=== PATIENT | male | born 1975 | race African-American/Black ===

== ENCOUNTER 2021-02-18 14:16 | Outpatient (CLI) | payer OTHER, SELFPAY ==
[2021-02-18 15:34] LABS: Basophils Absolute Auto 0.1 K/mm3 (0.0-0.1); Basophils Percent Auto 0.7 % (0.2-1.2); Eosinophils Absolute Auto 0.3 K/mm3 (0-0.3); Hematocrit 41.6 % (42.0-52.0); Immature Granulocyte Absolute 0.02 K/mm3 (0.00-0.031); Immature Granulocyte Percent A 0.3 % (0-0.5); Lymphocytes Absolute Auto 2.35 K/mm3 (0.9-3.2); Lymphocytes Percent Auto 32.6 % (18.3-44.2); Mean Corpuscular HGB Conc 31.3 g/dl (32-36); Mean Corpuscular Hemoglobin 28.1 pg (26-34); Mean Platelet Volume 10.1 fl (7.4-10.4); Monocytes Absolute Auto 0.5 K/mm3 (0.1-0.6); Monocytes Percent Auto 6.3 % (2.6-8.5); Neutrophils Percent Auto 56.1 % (45.5-73.1); Platelet Count Result 278 k/mm3 (150-375); Red Blood Count 4.62 M/mm3 (4.6-6.20); Red Cell Distribution Width 12.2 % (11.5-14.5); White Blood Count 7.2 K/mm3 (4.5-10.0)
[2021-02-18 17:27] LABS: Alanine Aminotransferase 28 U/L (4-50); Albumin Level 4.1 g/dL (3.5-5.1); Alkaline Phosphatase 57 U/L (38-126); Anion Gap 8 mmol/L (8-16); Aspartate Amino Transferase 28 U/L (17-59); Bilirubin,Total 0.6 mg/dL (0.2-1.3); Blood Urea Nitrogen 9 mg/dL (9-20); Calcium 9.5 mg/dL (8.4-10.2); Carbon Dioxide 26 mmol/L (22-30); Chloride 106 mmol/L (98-107); Cholesterol 192 mg/dL (0-200); Estimated Glomerular Filt Rate > 60; Glucose 78 mg/dL (75-110); HDL Direct 43 mg/dL; Potassium 4.3 mmol/L (3.4-5.0); Sodium 140 mmol/L (137-145); Triglycerides 87 mg/dL (<150)
[2021-02-18 17:38] LABS: LDL Cholesterol Direct 106 mg/dL
[2021-02-18 17:43] LABS: Vitamin D 25 Hydroxy 23.8 ng/mL
== END 2021-02-18 14:17 | disposition home or self-care (01) ==
LOC: ANHLAB 14:19
PROVIDERS: PCP Internal Medicine; Visit Provider Internal Medicine
DX: Z12.5 Encounter for screening for malignant neoplasm of prostate (principal); E03.9 Hypothyroidism, unspecified; E55.9 Vitamin D deficiency, unspecified; E78.00 Pure hypercholesterolemia, unspecified; E78.2 Mixed hyperlipidemia; E78.5 Hyperlipidemia, unspecified; I10 Essential (primary) hypertension
CPT/HCPCS: 36415; 80053; 80061; 82306; 84153; 84443; 85025; G0103

== ENCOUNTER 2022-01-19 10:53 | Outpatient (CLI) | payer OTHER, SELFPAY ==
[2022-01-19 13:01] LABS: Hematocrit 42.7 % (42.0-52.0); Hemoglobin 12.7 g/dL (14.0-18.0); Mean Corpuscular HGB Conc 29.7 g/dl (32-36); Mean Corpuscular Hemoglobin 27.5 pg (26-34); Mean Corpuscular Volume 92.6 fl (80-100); Mean Platelet Volume 10.4 fl (7.4-10.4); Platelet Count Result 313 k/mm3 (150-375); Red Blood Count 4.61 M/mm3 (4.6-6.20); Red Cell Distribution Width 12.7 % (11.5-14.5); White Blood Count 5.8 K/mm3 (4.5-10.0)
[2022-01-19 13:12] LABS: Alanine Aminotransferase 35 U/L (6-50); Alkaline Phosphatase 60 U/L (38-126); Anion Gap 6 mmol/L (8-16); Aspartate Amino Transferase 30 U/L (17-59); Bilirubin,Total 0.5 mg/dL (0.2-1.3); Blood Urea Nitrogen 9 mg/dL (9-20); Calcium 8.8 mg/dL (8.4-10.2); Carbon Dioxide 28 mmol/L (22-30); Chloride 103 mmol/L (98-107); Estimated Glomerular Filt Rate > 60; Glucose 92 mg/dL (65-110); Sodium 137 mmol/L (137-145)
[2022-01-19 13:32] LABS: Vitamin D 25 Hydroxy 34.5 ng/mL
== END 2022-01-19 10:54 | disposition home or self-care (01) ==
LOC: ANHWCLAB 11:00
PROVIDERS: PCP Internal Medicine; Visit Provider Internal Medicine
DX: E03.9 Hypothyroidism, unspecified (principal); E55.9 Vitamin D deficiency, unspecified; Z63.0 Problems in relationship with spouse or partner
CPT/HCPCS: 36415; 80053; 82306; 85027

== ENCOUNTER 2022-02-08 11:28 | Outpatient (CLI) | payer OTHER, SELFPAY ==
--- NOTE | ~2022-02-08 | XR_ITS ---
EXAMINATION: XR femur RT min 2V, XR knee RT 2V DATE: 02/08/2022 11:55 INDICATION: Acute traumatic fracture of the right femur. TECHNIQUE: 1. AP and lateral views of the right femur obtained on overlapping proximal and distal images. 2. AP and lateral views of the right knee were obtained.. COMPARISON: None. FINDINGS: Oblique proximal diaphyseal fracture of the right femur which is fixed with an antegrade intramedulla ry angelica with dynamic femoral neck compression screw and to distal metaphyseal interlocking screws. The re has been a fracture of the more proximal distal metaphyseal screw with approximately 9 mm backing out of the head fragment of the screw. There is prominent callus formation surrounding the fracture c onsistent with healing. There is however persistent lucent band projecting along the fracture plane a s well as the callus, indeterminate whether there is solid osseous bridging. Normal alignment and pardeep nt spaces at the right hip and knee. No right knee joint effusion. IMPRESSION: 1. Internally fixed proximal diaphyseal fracture of the right femur with prominent callus formation b ut residual lucency along the fracture plane across the talus, indeterminate for solid bridging. 2. Fracture of the distal interlocking screw at the distal right femoral metaphysis with 5 mm backing out of the head fragment. Reviewed, dictated and finalized at location B. IMPRESSION: 1. Internally fixed proximal diaphyseal fracture of the right femur with promin ent callus formation but residual lucency along the fracture plane across the t alus, indeterminate for solid bridging. 2. Fracture of the distal interlocking screw at the distal right femoral metaph ysis with 5 mm backing out of the head fragment.
--- NOTE | ~2022-02-08 | XR_ITS ---
EXAM: XR knee LT 2V DATE: 02/08/2022 11:56 HISTORY: M25.569 - Pain in unspecified knee, stepped wrong . COMPARISON: None available. FINDINGS: Normal mineralization. No fracture or dislocation. No lytic or blastic lesion. Mild medial joint space narrowing. Mild tricompartmental osteophytosis. No erosion or periosteal change. Possibl e small left knee joint effusion and anterior soft tissue swelling. IMPRESSION: Mild 3 compartment osteoarthritic change. No acute osseous finding in the left knee. Reviewed, dictated and finalized at location K.
== END 2022-02-08 11:29 | disposition home or self-care (01) ==
LOC: ANHIMG 11:30
PROVIDERS: PCP Internal Medicine; Visit Provider Internal Medicine
DX: M17.12 Unilateral primary osteoarthritis, left knee (principal); S72.91XA Unspecified fracture of right femur, initial encounter for closed fracture; M25.561 Pain in right knee
CPT/HCPCS: 73552; 73560

== ENCOUNTER 2022-03-27 00:18 | Day surgery (SDC) | payer OTHER, SELFPAY ==
[2022-03-17 10:30] VITALS: BMI 52.9
[2022-03-27 09:42] VITALS: BP 140/85; PULSE 87; RESP 20; TEMP 36.4; O2SAT 97
[2022-03-27] MEDS: LACTATED RINGERS 1,000 ML 150 ML IV CONT (09:51)
--- NOTE | 2022-03-27 10:18 | WPDANESEPPF ---
Anes - Initial Pre Proc Eval Procedure: Operation Date: 03/27/22 10:45 Proposed Procedures p Screening Colonoscopy - Ramesh Gibbs MD Date/Time: 03/27/22 10:18 Surgeon: Ramesh Gibbs MD Pre Op Diagnosis: neoplasm screening Patient Data Age: 47 Gender: M Height: 1.83 m Weight: 177 kg Last Vital Signs Temp 97.5 F L 03/27/22 09:42 Pulse 87 03/27/22 09:42 Resp 20 03/27/22 09:42 BP 140/85 03/27/22 09:42 Pulse Ox 97 03/27/22 09:42 O2 Del Method Room Air 03/27/22 09:42 Allergies Allergy/AdvReac Type Severity Reaction Status Date / Time No Known Allergies Allergy Verified 03/27/22 09:41 Home Medications Medication Instructions Recorded Confirmed Type hydrochlorothiazide 25 mg tablet See Rx Instructions .Route 01/23/22 03/17/22 Rx .COMPLEX #90 tabs levothyroxine 50 mcg tablet 50 mcg PO DAILY #90 tabs 01/23/22 03/17/22 Rx (Synthroid) losartan 50 mg-hydrochlorothiazide See Rx Instructions .Route 01/23/22 03/17/22 Rx 12.5 mg tablet .COMPLEX #90 tabs rosuvastatin 5 mg tablet (Crestor) 5 mg PO DAILY #90 tabs 01/23/22 03/17/22 Rx Patient hx anesthesia problems: none Family hx anesthesia problems: none Results Review: All pre-operative results and documents have been reviewed as part of the pre-operative evaluation. [facility] Past Medical History Medical History (Updated 03/27/22 @ 10:19 by Ramesh Gibbs MD) Colon cancer screening Family History Family History (Updated 04/24/17 @ 14:41 by DOCTOR UNKNOWN) Grandparent Diabetes mellitus Hypertension Family history of cardiovascular disease Father Family history of alcoholism Social History Social History (Updated 01/23/22 @ 10:45 by Rin Martinez [facility]) Smoking packs per day: 0.5 Smoking cigarettes per day: 10.0 Years smoked: 6 Smoking pack-years: 3.00 Smoking status: Former smoker Tobacco type: cigarettes Alcohol intake: current Alcohol use details: occasional social use Substance use: never Substance use type: does not use Living arrangements: with family Spiritual care concerns: No Anes - Eval Final PreProcedure Day of Procedure 03/27/22 10:18 Patient weight: super morbidly obese Heart: regular rate and rhythm Lungs: clear to auscultation Airway: Mallampati scale class III Neurological: alert and oriented Last oral intake: >/= 8 hours ASA classification: IV Emergent: no Anesthetic plan: proceed Anesthesia type and monitoring: general GIVS and standard monitoring Results Review: All pre-operative results and documents have been reviewed as part of the pre-operative evaluation. Informed Consent: The patient's anesthetic plan and its attendant risks and benefits were discussed with the patient/family/POA. Questions were solicited and answers provided to the satisfaction of the patient/family/POA.
--- NOTE | 2022-03-27 10:18 | PM.HPGS ---
History of Present Illness History of Present Illness Consent: Risks, benefits, and alternatives have been discussed and questions answered. Patient agrees to proceed with procedure. Chief complaint: neoplasm screening Narrative: Nahid Scales is a 47 year old male here for first screening colonoscopy Review of Systems Constitutional: Constitutional: Denies headache(s) and Denies weakness Eyes: Eyes: Denies blurry vision ENT: Reports Normal hearing present, Denies headache(s) and Denies neck pain Cardiovascular: Cardiovascular: Denies chest pain and Denies dyspnea Respiratory: Respiratory: Denies dyspnea Gastrointestinal: Gastrointestinal: Reports no additional gastrointestinal complaints Genitourinary: Genitourinary: Denies dysuria Musculoskeletal: Musculoskeletal: Denies neck pain Integumentary/Breasts: Skin/Breast: Denies dry skin Neurologic: Reports Normal hearing present, Denies headache(s) and Denies weakness Psychiatric: Psychiatric: Denies anxiety Endocrine: Endocrine: Denies change in body appearance Hematologic/Lymphatic: Hematologic/Lymphatic: Denies easy bleeding Allergic/Immunologic: Allergic/Immunologic: Denies urticaria [facility] Past Medical History Medical History (Updated 03/27/22 @ 10:19 by Ramesh Gibbs MD) Colon cancer screening Family History Family History (Updated 04/24/17 @ 14:41 by DOCTOR UNKNOWN) Grandparent Diabetes mellitus Hypertension Family history of cardiovascular disease Father Family history of alcoholism Social History Social History (Updated 01/23/22 @ 10:45 by Rin Martinez CMA) Smoking packs per day: 0.5 Smoking cigarettes per day: 10.0 Years smoked: 6 Smoking pack-years: 3.00 Smoking status: Former smoker Tobacco type: cigarettes Alcohol intake: current Alcohol use details: occasional social use Substance use: never Substance use type: does not use Living arrangements: with family Spiritual care concerns: No Meds Home Medications and Allergies Home Medications Medication Instructions Recorded Confirmed Type hydrochlorothiazide 25 mg tablet See Rx Instructions .Route 01/23/22 03/17/22 Rx .COMPLEX #90 tabs levothyroxine 50 mcg tablet 50 mcg PO DAILY #90 tabs 01/23/22 03/17/22 Rx (Synthroid) losartan 50 mg-hydrochlorothiazide See Rx Instructions .Route 01/23/22 03/17/22 Rx 12.5 mg tablet .COMPLEX #90 tabs rosuvastatin 5 mg tablet (Crestor) 5 mg PO DAILY #90 tabs 01/23/22 03/17/22 Rx Allergies Allergy/AdvReac Type Severity Reaction Status Date / Time No Known Allergies Allergy Verified 03/27/22 09:41 Vital Signs Vital Signs - 24 hr 03/27/22 09:42 Temperature 97.5 F L Pulse Rate 87 Respiratory Rate 20 Blood Pressure 140/85 Pulse Oximetry 97 Oxygen Delivery Room Air Exam Const: General: comfortable and no acute distress HENMT: General nose exam: Normal nares present Eyes: General: appearance normal, both eyes and all related structures Neck: Neck: no JVD Resp: Auscultation: clear to auscultation bilaterally Cardio: Rate: regular rate Rhythm: regular rhythm GI: Inspection: non-distended GI Palp: Yes Soft to palpation Skin: General skin exam: normal color Neuro: General: gait normal Speech: normal speech Extrem: General: normal to inspection Psych: Mental Status: mental status grossly normal Assessment and Plan Assessment and plan (1) Colon cancer screening: Code(s): Z12.11 - Encounter for screening for malignant neoplasm of colon Status: Acute Assessment and Plan: colonoscopy
[2022-03-27 10:44] VITALS: BP 122/82; PULSE 77; RESP 18; O2SAT 98
[2022-03-27 10:52] VITALS: BP 137/90; PULSE 82; RESP 15; O2SAT 100
[2022-03-27 11:01] VITALS: BP 127/74; PULSE 73; RESP 18; O2SAT 100
== END 2022-03-27 11:02 | disposition home or self-care (01) ==
PROVIDERS: PCP Internal Medicine; Visit Provider Internal Medicine Gastroenterology
PROC: 0DJD8ZZ Inspection of Lower Intestinal Tract, Via Natural or Artificial Opening Endoscopic (ICD-10-PCS; CPT 45378; principal; 2022-03-27 10:45)
DX: Z12.11 Encounter for screening for malignant neoplasm of colon (principal); Z87.891 Personal history of nicotine dependence; E03.9 Hypothyroidism, unspecified; E66.01 Morbid (severe) obesity due to excess calories; Z68.43 Body mass index [BMI] 50.0-59.9, adult
CPT/HCPCS: 45378; J2704; J7120

== ENCOUNTER 2022-06-29 10:03 | Outpatient (CLI) | payer OTHER, SELFPAY ==
[2022-06-29 13:24] LABS: Hematocrit 41.7 % (42.0-52.0); Hemoglobin 12.4 g/dL (14.0-18.0); Mean Corpuscular HGB Conc 29.7 g/dl (32-36); Mean Corpuscular Hemoglobin 27.9 pg (26-34); Mean Corpuscular Volume 93.9 fl (80-100); Mean Platelet Volume 9.9 fl (7.4-10.4); Platelet Count Result 387 k/mm3 (150-375); Red Blood Count 4.44 M/mm3 (4.6-6.20); Red Cell Distribution Width 12.5 % (11.5-14.5); White Blood Count 13.7 K/mm3 (4.5-10.0)
[2022-06-29 13:46] LABS: Alanine Aminotransferase 51 U/L (6-50); Albumin Level 4.3 g/dL (3.5-5.1); Alkaline Phosphatase 60 U/L (38-126); Anion Gap 7 mmol/L (8-16); Aspartate Amino Transferase 65 U/L (17-59); Bilirubin,Total 0.5 mg/dL (0.2-1.3); Blood Urea Nitrogen 13 mg/dL (9-20); Calcium 8.7 mg/dL (8.4-10.2); Carbon Dioxide 27 mmol/L (22-30); Chloride 102 mmol/L (98-107); Estimated Glomerular Filt Rate > 60; Glucose 115 mg/dL (65-110); Potassium 3.8 mmol/L (3.4-5.0); Sodium 136 mmol/L (137-145)
[2022-06-29 14:05] LABS: Vitamin D 25 Hydroxy 18.9 ng/mL
== END 2022-06-29 10:04 | disposition home or self-care (01) ==
LOC: ANHWCLAB 10:05
PROVIDERS: PCP Internal Medicine; Visit Provider Internal Medicine
DX: E03.9 Hypothyroidism, unspecified (principal); E55.9 Vitamin D deficiency, unspecified; Z63.0 Problems in relationship with spouse or partner
CPT/HCPCS: 36415; 80053; 82306; 85027

== ENCOUNTER 2022-07-20 13:10 | Outpatient (CLI) | payer OTHER, SELFPAY ==
--- NOTE | 2022-07-24 11:42 | WPDHOLTEREM ---
Holter/Event Monitor Holter/Event Monitor Date of procedure: 07/20/22 Holter/Event Procedure: 48 Hr Holter Monitor Indications: Palpitations Conclusion: 1. 48 hour holter monitor on 07/20/22. 2. Predominant rhythm is sinus rhythm. HR range 41-143 bpm; average HR 99 bpm. 3. There are 182 premature supraventricular complexes. One episode of atrial tachycardia at 126 bpm lasting 4 beats at 17:48. 4. There are 4 premature ventricular complexes. There is 1 episode of ventricular tachycardia at 125 bpm lasting 7 beats at 12:32. 5. The longest pause is 2.2 seconds due to sinus pause just prior to atrial tachycardia episode at 17:48. 6. No symptoms available for correlation.
== END 2022-07-20 13:11 | disposition home or self-care (01) ==
PROVIDERS: PCP Internal Medicine; Visit Provider Internal Medicine
DX: R00.2 Palpitations (principal)
CPT/HCPCS: 93225; 93226